=== PATIENT | male | born 1965 | race Caucasian/White ===

== ENCOUNTER 2016-11-23 12:28 | Emergency (ER) | payer BC ==
[2016-11-23] MEDS ORDERED: Aspirin 81 MG Tab.Chew PO ONE ×2 (12:35→12:36)
[2016-11-23] MEDS ORDERED: Sodium Chloride 0.9% 10 ML Syringe FLUSH PRN (12:36)
[2016-11-23] MEDS ORDERED: Famotidine 20 MG/2 ML SDV IVPUSH ONE (12:36)
[2016-11-23] MEDS ORDERED: Sodium Chloride 0.9% 2.5 ML Syringe FLUSH PRN (12:36)
[2016-11-23] MEDS ORDERED: Sodium Chloride 0.9% 1,000 ML IV SCH (12:45)
--- NOTE | 2016-11-23 12:45 | EDM.PDOC ---
ED HPI GENERAL MEDICAL PROBLEM - General Chief Complaint: Chest Pain Stated Complaint: POSSIBLY HEART ATTACK Time Seen by Provider: 11/23/16 12:40 Source of Information: Reports: Patient History Limitations: Reports: No Limitations - History of Present Illness INITIAL COMMENTS - FREE TEXT/NARRATIVE: HISTORY AND PHYSICAL: 51-year-old male presents to the emergency room with complaints of left chest wall pain 4 days History of Present Illness: 51-year-old male presents to the emergency room today with complaints of left chest wall pain that has progressively, worse over the past 4 days. Reports that the pain starts in the left axilla and left breast. Denies pain radiating to the midsternal area, neck, jaw, back. States the pain is worse when he takes in a deep breath. Denies any recent trauma or injury to the chest wall area. Denies any nausea, diaphoresis, gastric pain, or headache. She has a family history of cardiac disease. Reports that his brother recently had stents who is in his 60s. Father had a [place] at the age of 48. Denies any personal cardiac disease. Patient is a current smoker pack per day on and off for the last 20 years. Review of Systems: As per history of present illness and below otherwise all systems reviewed and negative. Past medical history: As per history of present illness and as reviewed below otherwise noncontributory. Surgical history: As per history of present illness and as reviewed below otherwise noncontributory. Social history: No reported history of drug or alcohol abuse. Family history: As per history of present illness and as reviewed below otherwise noncontributory. Physical exam: Gen.: Nontoxic-appearing 51-year-old male. Able to speak in full sentences without shortness of breath. Questions appropriately. Alert and oriented. HEENT: Atraumatic, normocehpalic, pupils reactive, negative for conjunctival pallor or scleral icterus, mucous membranes moist, throat clear, neck supple, nontender, trachea midline. Lungs: Clear to auscultation, breath sounds equal bilaterally, chest non tender. Heart: S1S2, regular, negative for clicks, rubs, or JVD. Abdomen: Soft, nondistended, nontender. Negative for masses or hepatossplenmegaly. Negative for costovertebral tenderness. Pelvis: Stable nontender. Genitourinary: Deferred. Rectal: Deferred Extremities: Atraumatic, negative for cords or calf pain. No lower extremity edema. Neurovascular unremarkable. Neuro: Awake, alert, oriented. Cranial nerves II through XII unremarkable. Cerebellum unremarkable. Motor and sensory unremarkable throughout. Exam nonfocal. Diagnostics: CBC, CMP, troponin, PT/INR, d-dimer, EKG, 1 view chest Therapeutics: Oxygen, IV, aspirin, famotidine Impression: [Chest wall pain] Plan: 1. Please start a baby aspirin once daily by mouth. 2. May take an [id number] anti-inflammatory medication such as ibuprofen or Aleve. Take this medication as directed on the bottle. 3. Please follow-up with your primary care doctor in the next 1-2 days as discussed. Please follow-up with cardiology as we discussed a possible stress test may be needed in the future. 4. If symptoms worsen or return please return to the emergency room as needed as discussed Definitive disposition and diagnosis as appropriate pending reevaluation and review of above. Onset: Other (4 days ago) Onset Date: 11/19/16 Duration: Day(s): Location: Reports: Chest Quality: Reports: Pressure Severity: Moderate (Constant) Worsens with: Reports: Other (Deep breathing and coughing) Associated Symptoms: Reports: No Other Symptoms Left Chest Pain Score (Numeric/FACES): 10 - Related Data Allergies Allergy/AdvReac Type Severity Reaction Status Date / Time No Known Allergies Allergy Verified 11/23/16 12:39 Home Meds: Home Meds Citalopram [Celexa] 40 mg PO DAILY 11/23/16 [History] ED ROS GENERAL - Review of Systems Review Of Systems: ROS reveals no pertinent complaints other than HPI. ED EXAM, GENERAL - Physical Exam Exam: See Below (See dictation) EKG INTERPRETATION EKG Date: 11/23/16 Time: 12:31 Rhythm: NSR Comparison: NA - No Prior EKG Course - Vital Signs Last Recorded V/S: Last Vital Signs Temp 36.3 C 11/23/16 12:39 Pulse 75 11/23/16 12:39 Resp 18 11/23/16 12:39 BP 186/106 H 11/23/16 12:39 Pulse Ox 97 11/23/16 12:46 - Orders/Labs/Meds Orders: Active Orders 24 hr Category Date Time Status Cardiac Monitoring [RC] . DIRECTED Care 11/23/16 12:36 Active EKG Documentation Completion [RC] STAT Care 11/23/16 12:36 Active Oxygen Therapy [RC] ASDIRECTED Care 11/23/16 12:36 Active Pulse Oximetry [RC] ASDIRECTED Care 11/23/16 12:36 Active UA W/MICROSCOPIC [URIN] Stat Lab 11/23/16 12:35 Uncollected Sodium Chloride 0.9% [Normal Saline] 1,000 ml Med 11/23/16 12:45 Active IV STAT Sodium Chloride 0.9% [Saline Flush] Med 11/23/16 12:36 Active 10 ml FLUSH ASDIRECTED PRN Sodium Chloride 0.9% [Saline Flush] Med 11/23/16 12:36 Active 2.5 ml FLUSH ASDIRECTED PRN Saline Lock Insert [OM.PC] Stat Oth 11/23/16 12:36 Ordered Medication Orders Sodium Chloride (Normal Saline) 1,000 mls @ 125 mls/hr IV STAT JAXSON Last Admin: 11/23/16 13:06 Dose: 125 mls/hr Sodium Chloride (Saline Flush) 10 ml FLUSH ASDIRECTED PRN PRN Reason: Keep Vein Open Sodium Chloride (Saline Flush) 2.5 ml FLUSH ASDIRECTED PRN PRN Reason: Keep Vein Open Labs: Laboratory Tests 11/23/16 11/23/16 11/23/16 Range/Units 12:55 12:55 12:55 WBC 8.50 (4.0-11.0) K/uL RBC 4.98 (4.50-5.90) M/uL Hgb 15.5 (13.0-17.0) g/dL Hct 44.8 (38.0-50.0) % MCV 90.0 (80.0-98.0) fL MCH 31.1 (27.0-32.0) pg MCHC 34.6 (31.0-37.0) g/dL RDW Std Deviation 44.1 (28.0-62.0) fl RDW Coeff of King 13 (11.0-15.0) % Plt Count 201 (150-400) K/uL MPV 10.80 (7.40-12.00) fL Neut % (Auto) 69.6 (48.0-80.0) % Lymph % (Auto) 20.8 (16.0-40.0) % [place] % (Auto) 8.5 (0.0-15.0) % Eos % (Auto) 0.7 (0.0-7.0) % Baso % (Auto) 0.4 (0.0-1.5) % Neut # (Auto) 5.9 H (1.4-5.7) K/uL Lymph # (Auto) 1.8 (0.6-2.4) K/uL [place] # (Auto) 0.7 (0.0-0.8) K/uL Eos # (Auto) 0.1 (0.0-0.7) K/uL Baso # (Auto) 0.0 (0.0-0.1) K/uL Nucleated RBC % 0.0 /100WBC Nucleated RBCs # 0 K/uL INR 1.04 (0.86-1.11) D-Dimer, Quantitative (0.0-0.52) mg/LFEU Sodium 137 (136-146) mmol/L Potassium 4.1 (3.5-5.1) mmol/L Chloride 105 (98-110) mmol/L Carbon Dioxide 22 (21-31) mmol/L BUN 21 (6.0-23.0) mg/dL Creatinine 1.0 (0.6-1.5) mg/dL Est Cr Clr Drug Dosing 94.13 mL/min Estimated GFR (MDRD) > 60.0 ml/min Glucose 106 (60-110) mg/dL Calcium 8.9 (8.8-10.8) mg/dL Total Bilirubin 0.9 (0.1-1.5) mg/dL AST 20 (5-40) IU/L ALT 34 (8-54) IU/L Alkaline Phosphatase 86 (40-150) Creatine Kinase 207 (9-236) IU/L CK-MB (CK-2) 3.3 (0-6.6) ng/ml Troponin I (0.0-0.29) NG/ML Total Protein 7.1 (6.0-8.0) g/dL Albumin 4.1 (3.5-5.0) g/dL Globulin 3.0 (2.0-3.5) g/dL Albumin/Globulin Ratio 1.4 (1.3-2.8) Amylase 53 (10-90) U/L Lipase 21 (7-80) U/L 11/23/16 11/23/16 Range/Units 12:55 12:55 WBC (4.0-11.0) K/uL RBC (4.50-5.90) M/uL Hgb (13.0-17.0) g/dL Hct (38.0-50.0) % MCV (80.0-98.0) fL MCH (27.0-32.0) pg MCHC (31.0-37.0) g/dL RDW Std Deviation (28.0-62.0) fl RDW Coeff of King (11.0-15.0) % Plt Count (150-400) K/uL MPV (7.40-12.00) fL Neut % (Auto) (48.0-80.0) % Lymph % (Auto) (16.0-40.0) % [place] % (Auto) (0.0-15.0) % Eos % (Auto) (0.0-7.0) % Baso % (Auto) (0.0-1.5) % Neut # (Auto) (1.4-5.7) K/uL Lymph # (Auto) (0.6-2.4) K/uL [place] # (Auto) (0.0-0.8) K/uL Eos # (Auto) (0.0-0.7) K/uL Baso # (Auto) (0.0-0.1) K/uL Nucleated RBC % /100WBC Nucleated RBCs # K/uL INR (0.86-1.11) D-Dimer, Quantitative 0.46 (0.0-0.52) mg/LFEU Sodium (136-146) mmol/L Potassium (3.5-5.1) mmol/L Chloride (98-110) mmol/L Carbon Dioxide (21-31) mmol/L BUN (6.0-23.0) mg/dL Creatinine (0.6-1.5) mg/dL Est Cr Clr Drug Dosing mL/min Estimated GFR (MDRD) ml/min Glucose (60-110) mg/dL Calcium (8.8-10.8) mg/dL Total Bilirubin (0.1-1.5) mg/dL AST (5-40) IU/L ALT (8-54) IU/L Alkaline Phosphatase (40-150) Creatine Kinase (9-236) IU/L CK-MB (CK-2) (0-6.6) ng/ml Troponin I < 0.10 (0.0-0.29) NG/ML Total Protein (6.0-8.0) g/dL Albumin (3.5-5.0) g/dL Globulin (2.0-3.5) g/dL Albumin/Globulin Ratio (1.3-2.8) Amylase (10-90) U/L Lipase (7-80) U/L Meds: Medications Generic Name Dose Route Start Last Admin Trade Name Freq PRN Reason Stop Dose Admin Sodium Chloride 1,000 mls @ 125 mls/hr 11/23/16 12:45 11/23/16 13:06 Normal Saline IV 125 mls/hr STAT JAXSON Administration Sodium Chloride 10 ml 11/23/16 12:36 Saline Flush FLUSH ASDIRECTED PRN Keep Vein Open Sodium Chloride 2.5 ml 11/23/16 12:36 Saline Flush FLUSH ASDIRECTED PRN Keep Vein Open Discontinued Medications Generic Name Dose Route Start Last Admin Trade Name Freq PRN Reason Stop Dose Admin Aspirin 324 mg 11/23/16 12:35 11/23/16 13:06 Aspirin PO 11/23/16 12:36 324 mg ONETIME ONE Administration Aspirin 324 mg 11/23/16 12:36 11/23/16 13:06 Aspirin PO 11/23/16 12:37 Not Given ONETIME ONE Famotidine 20 mg 11/23/16 12:36 11/23/16 13:08 Pepcid IVPUSH 11/23/16 12:37 20 mg ONETIME ONE Administration Departure - Departure Time of Disposition: 14:12 Disposition: Home, Self-Care 01 Condition: Good Clinical Impression: Chest wall pain Forms: ED Department Discharge Additional Instructions: The following information is given to patients seen in the emergency department who are being discharged to home. This information is to outline your options for follow-up care. We provide all patients seen in our emergency department with a follow-up referral. The need for follow-up, as well as the timing and circumstances, are variable depending upon the specifics of your emergency department visit. If you don't have a primary care physician on staff, we will provide you with a referral. We always advise you to contact your personal physician following an emergency department visit to inform them of the circumstance of the visit and for follow-up with them and/or the need for any referrals to a consulting specialist. The emergency department will also refer you to a specialist when appropriate. This referral assures that you have the opportunity for followup care with a specialist. All of these measure are taken in an effort to provide you with optimal care, which includes your followup. Under all circumstances we always encourage you to contact your private physician who remains a resource for coordinating your care. When calling for followup care, please make the office aware that this follow-up is from your recent emergency room visit. If for any reason you are refused follow-up, please contact the [facility] emergency department at and asked to speak to the emergency department charge nurse. [facility] [address] [place] [id number] My Cardiology [facility] - Non-Interventional Cardiology [address] [place] [id number] 1. Please start a baby aspirin once daily by mouth. 2. May take an [id number] anti-inflammatory medication such as ibuprofen or Aleve. Take this medication as directed on the bottle. 3. Please follow-up with your primary care doctor in the next 1-2 days as discussed. Please follow-up with cardiology as we discussed a possible stress test may be needed in the future. 4. Please stop smoking 5. If symptoms worsen or return please return to the emergency room as needed as discussed - My Orders Last 24 Hours: My Active Orders 11/23/16 12:36 Cardiac Monitoring [RC] . DIRECTED EKG Documentation Completion [RC] STAT Oxygen Therapy [RC] ASDIRECTED Pulse Oximetry [RC] ASDIRECTED Sodium Chloride 0.9% [Saline Flush] 10 ml FLUSH ASDIRECTED PRN Sodium Chloride 0.9% [Saline Flush] 2.5 ml FLUSH ASDIRECTED PRN Saline Lock Insert [OM.PC] Stat - Assessment/Plan Last 24 Hours: My Active Orders 11/23/16 12:36 Cardiac Monitoring [RC] . DIRECTED EKG Documentation Completion [RC] STAT Oxygen Therapy [RC] ASDIRECTED Pulse Oximetry [RC] ASDIRECTED Sodium Chloride 0.9% [Saline Flush] 10 ml FLUSH ASDIRECTED PRN Sodium Chloride 0.9% [Saline Flush] 2.5 ml FLUSH ASDIRECTED PRN Saline Lock Insert [OM.PC] Stat
[2016-11-23 13:33] LABS: CHLORIDE,CL 105 mmol/L (98-110); SODIUM,NA 137 mmol/L (136-146)
--- NOTE | 2016-11-23 13:51 | CR ---
EXAMINATION: Portable chest radiograph. HISTORY: Shortness of breath. FINDINGS: The trachea is midline. The cardiomediastinal silhouette is within normal limits. No pulmonary infil trates, effusions or pneumothorax. Osseous structures appear unremarkable. IMPRESSION: No acute cardiopulmonary process.
[2016-11-23 14:34] VITALS: BP 136/91
== END 2016-11-23 14:30 | disposition home or self-care (01) ==
LOC: MW.ED 12:28
DX: R07.89 Other chest pain (principal); Z79.899 Other long term (current) drug therapy
CPT/HCPCS: 36415; 71010; 80053; 82150; 82550; 82553; 83690; 84484; 85025; 85379; 85610; 93005; 96361; 96374; 99285; A9270; J7040; 99283

== ENCOUNTER 2020-03-11 08:39 | Emergency (ER) | payer BC, OTHER ==
--- NOTE | 2020-03-11 09:04 | EDM.PDOC ---
ED HPI GENERAL MEDICAL PROBLEM - General Chief Complaint: Lower Extremity Injury/Pain Stated Complaint: POSSIBLE BLOOD CLOT IN LEG RIGHT Time Seen by Provider: 03/11/20 09:00 Source of Information: Reports: Patient History Limitations: Reports: No Limitations - History of Present Illness INITIAL COMMENTS - FREE TEXT/NARRATIVE: 54-year-old male with history of depression presents with right lower extremity redness and pain worsening over the last 10 days. He drives a semitruck for work. He denies recent trauma, history of DVT or PE, fever, chills. He notes the redness is tracking up proximally to his distal thigh. ROS: A 10-point review of systems, other than pertinent positives and negatives as stated per HPI, is otherwise negative Past medical history: No additional pertinent history Past Surgical history: No additional pertinent history Social history: No additional pertinent history Family history: No additional pertinent history PHYSICAL EXAM General: AOx4, GCS = 15, No distress HEENT: dry mucous membrane Neck: supple, no meningismus, no Kernig or Brudzinski Cardiac: S1S2 RRR Respiratory: CTAB, no crackles or rales, no wheezing Abdomen: Soft, nontender, no rebound or guarding, nondistended, no pulsatile mass. Back: nontender Musculoskeletal: NVI distally, erythema to the right popliteal region extending up to the right distal thigh, with mild induration. Neuro: No focal deficits, CN 2 - 12 WNL. right leg Pain Score (Numeric/FACES): 4 - Related Data Allergies Allergy/AdvReac Type Severity Reaction Status Date / Time No Known Allergies Allergy Verified 03/11/20 09:14 Home Meds: Home Meds Escitalopram [Lexapro] 20 mg PO DAILY 03/11/20 [History] Naproxen [EC-Naproxen] 500 mg PO BID #10 tablet. 03/11/20 [Rx] Sulfamethoxazole/Trimethoprim [Bactrim Ds Tablet] 2 each PO BID #40 tablet 03/11/20 [Rx] cephALEXin [Keflex] 500 mg PO Q8H #30 cap 03/11/20 [Rx] Past Medical History HEENT History: Reports: Impaired Vision Psychiatric History: Reports: Depression Social & Family History - Family History Family Medical History: No Pertinent Family History - Caffeine Use Caffeine Use: Reports: Coffee Caffeine Use Comment: 32 oz per day Review of Systems - Review of Systems Review Of Systems: See Below (see dictation) ED EXAM, GENERAL - Physical Exam Exam: See Below (see dictation) Course - Vital Signs Last Recorded V/S: Last Vital Signs Temp 97.3 F 03/11/20 09:15 Pulse 93 03/11/20 09:15 Resp 16 03/11/20 09:15 BP 124/91 H 03/11/20 09:15 Pulse Ox 96 03/11/20 09:15 - Orders/Labs/Meds Orders: Active Orders 24 hr Category Date Time Status Venous Doppler Lwr Ext Rt [US] Stat Exams 03/11/20 09:00 Ordered - Re-Assessments/Exams Free Text/Narrative Re-Assessment/Exam: 03/11/20 1039 After venous Doppler ultrasound in the ER, he is stable for discharge. I performed a repeat exam and did not appreciate new abnormal findings. Patient exhibits normal vital signs and has a normal gait on road test. I advised the patient to return to the ER for reevaluation if symptoms worsened, including fever, worsening pain, or any other worrisome symptoms. I instructed the patient to follow up with their PCP within 2-3 days and to return for repeat ultrasound in 6 weeks for progression and wear compressive stockings. MEDICAL DECISION MAKING: I reviewed the patients past medical records, lab and radiographic findings. I discussed the case with the patient. My differential diagnosis included: Cellulitis, DVT, superficial thrombophlebitis. Ultrasound was negative for DVT, clinically this is consistent with a cellulitis given induration superficially and erythema streaking up to the distal thigh. He is afebrile with no tachycardia, I do not suspect sepsis warranting IV antibiotics. I believe that he is amendable for outpatient antibiotic treatment and s upportive care for his superficial thrombophlebitis. Departure - Departure Time of Disposition: 10:21 Disposition: Home, Self-Care 01 Condition: Good Clinical Impression: Superficial thrombophlebitis - Discharge Information *PRESCRIPTION DRUG MONITORING PROGRAM REVIEWED*: Not Applicable *COPY OF PRESCRIPTION DRUG MONITORING REPORT IN PATIENT TAVON: Not Applicable Prescriptions: Sulfamethoxazole/Trimethoprim [Bactrim Ds Tablet] 2 each PO BID #40 tablet Naproxen [EC-Naproxen] 500 mg PO BID #10 tablet. cephALEXin [Keflex] 500 mg PO Q8H #30 cap Instructions: Phlebitis, [id number] Referrals: Hina Renee DO [Primary Care Provider] - 1 Week Forms: ED Department Discharge Additional Instructions: The need for follow-up, as well as the timing and circumstances, are variable depending upon the specifics of your emergency department visit. If you don't have a primary care physician on staff, we will provide you with a referral. We always advise you to contact your personal physician following an emergency department visit to inform them of the circumstance of the visit and for follow-up with them and/or the need for any referrals to a consulting specialist. The emergency department will also refer you to a specialist when appropriate. This referral assures that you have the opportunity for follow-up care with a specialist. All of these measure are taken in an effort to provide you with optimal care, which includes your follow-up. Under all circumstances we always encourage you to contact your private physician who remains a resource for coordinating your care. When calling for follow-up care, please make the office aware that this follow-up is from your recent emergency room visit. If for any reason you are refused follow-up, please contact the [facility] Emergency Department at and asked to speak to the emergency department charge nurse. If you do not have a primary care doctor, please follow up with the clinics below within 3-5 days. [facility] - Primary Care [address] [place] [id number] [facility] [address] [place] [address] Sepsis Event Note (ED) - Focused Exam Vital Signs: Vital Signs Temp Pulse Resp BP Pulse Ox 03/11/20 09:15 97.3 F 93 16 124/91 H 96 - My Orders Last 24 Hours: My Active Orders 03/11/20 09:00 Venous Doppler Lwr Ext Rt [US] Stat - Assessment/Plan Last 24 Hours: My Active Orders 03/11/20 09:00 Venous Doppler Lwr Ext Rt [US] Stat
--- NOTE | 2020-03-11 10:34 | US ---
INDICATION: Pain COMPARISON: None available. FINDINGS: Ultrasound of the venous drainage of the right lower extremity shows no evidence of deep venous thrombosis. There is normal antegrade flow from the posterior tibial and popliteal veins superiorly through the common femoral vein. There is normal augmentation and compressibility of these veins. The left common femoral vein is widely patent. There is superficial venous thrombophlebitis of a portion of the greater saphenous vein and a branch thereof in the calf corresponding to the area of pain. IMPRESSION: No evidence of deep venous thrombosis on ultrasound examination of the right lower extremity. There is superficial venous thrombophlebitis of a portion the greater saphenous vein in the branches thereof the calf corresponding area of pain. Dictated by Gary Kendrick MD @ Mar 11 2020 10:29AM Signed by Dr. Gary Kendrick @ Mar 11 2020 10:33AM
[2020-03-11 11:13] VITALS: BP 136/85; PULSE 75
== END 2020-03-11 11:41 | disposition home or self-care (01) ==
LOC: MW.ED 08:39
DX: I80.01 Phlebitis and thrombophlebitis of superficial vessels of right lower extremity (principal); F32.9 Major depressive disorder, single episode, unspecified; Z79.899 Other long term (current) drug therapy
CPT/HCPCS: 93971-26-RT; 93971-RT; 99283-25

== ENCOUNTER 2021-11-03 09:59 | Inpatient (IN) | payer OTHER ==
[2021-11-03] MEDS ORDERED: Sodium Chloride 0.9% 2.5 ML Syringe FLUSH PRN ×2 (10:24→14:27)
[2021-11-03] MEDS ORDERED: Sodium Chloride 0.9% 10 ML Syringe FLUSH PRN ×2 (10:24→14:27)
[2021-11-03 11:20] LABS: CARBON DIOXIDE,CO2 25.9 mmol/L (21.0-32.0); POTASSIUM,K 4.4 mmol/L (3.5-5.1)
[2021-11-03] MEDS ORDERED: Heparin Sodium 5,000 Units/ML Vial IVPUSH ONE (12:01)
[2021-11-03] MEDS ORDERED: Heparin Sodium/0.45% NaCl 500 ML IV SCH (12:15)
[2021-11-03] MEDS ORDERED: Iopamidol 755 MG/ML 500 ML Multipack Bottle IVPUSH STA (13:43)
[2021-11-03] MEDS ORDERED: Heparin Sodium 5,000 Units/ML Vial IVPUSH PRN (14:24)
[2021-11-03] MEDS ORDERED: Acetaminophen 325 MG Tab PO PRN (14:27)
[2021-11-03] MEDS ORDERED: Docusate Sodium 100 MG Cap PO PRN (14:27)
[2021-11-03] MEDS ORDERED: Ondansetron 4 MG/2 ML SDV IVPUSH PRN (14:27)
[2021-11-03] MEDS ORDERED: oxyCODONE 5 MG Tab PO PRN (14:30)
[2021-11-03] MEDS: Heparin Sodium/0.45% NaCl 500 ML IV SCH (19:45)
[2021-11-04] MEDS ORDERED: Melatonin 3 MG Tab PO ONE (01:00)
[2021-11-04] MEDS: Heparin Sodium/0.45% NaCl 500 ML IV SCH ×2 (02:11→15:32)
[2021-11-04 07:11] LABS: CARBON DIOXIDE,CO2 25.7 mmol/L (21.0-32.0)
[2021-11-04] MEDS: Escitalopram 10 MG Tab PO SCH (08:22)
[2021-11-04] MEDS ORDERED: Melatonin 3 MG Tab PO PRN (21:19)
[2021-11-05] MEDS: Heparin Sodium/0.45% NaCl 500 ML IV SCH (05:14)
[2021-11-05 07:52] LABS: CARBON DIOXIDE,CO2 24.6 mmol/L (21.0-32.0)
[2021-11-05 08:15] VITALS: BP 100/61; PULSE 78
[2021-11-05] MEDS ORDERED: Rivaroxaban 15 MG Tab PO SCH (09:00)
[2021-11-05] MEDS: Escitalopram 10 MG Tab PO SCH (09:06)
== END 2021-11-05 11:00 | disposition home or self-care (01) | DRG 176 ==
LOC: MW.ED 09:59 → MW.MS 13:19
PROVIDERS: ADMIT Student in an Organized Health Care Education/Training Program; ATTEND Student in an Organized Health Care Education/Training Program
DX: I26.99 Other pulmonary embolism without acute cor pulmonale (principal); F32.9 Major depressive disorder, single episode, unspecified; H54.7 Unspecified visual loss; F17.210 Nicotine dependence, cigarettes, uncomplicated; Z20.822 Contact with and (suspected) exposure to COVID-19; Z86.718 Personal history of other venous thrombosis and embolism; Z79.899 Other long term (current) drug therapy
CPT/HCPCS: 36415; 71275; 71275-26; 80048; 80053; 83880; 84484; 85025; 85730; 93005; 93010; 93306; 93971-26-LT; 93971-LT; 96365; 96366; 99222; 99232; 99238; 99284; 99285-25; A9270-GY; J1644; J3490; Q9967; U0002